=== PATIENT | female | born 1990 | race Caucasian/White ===

== ENCOUNTER → 2021-05-24 | Emergency (ER) | payer OTHER ==
[~2021-05-24] MED LIST: ZOFRAN ODT 4 MG4 MG PO
== END | disposition home or self-care (01) ==
LOC: ER1 17:30
DX: R51.9 Headache, unspecified (principal); R11.0 Nausea
CPT/HCPCS: 70450; 96365; 96366; 96375; 99284; J1100; J1200; J1885; J2405; J3475; J7030